=== PATIENT | female | born 1935 | race Caucasian/White ===

== ENCOUNTER 2022-05-14 09:51 | Inpatient (IN) | payer OTHER ==
[~2022-05-14] VITALS: Ht 154.9 cm; Wt 62.6 kg
[2022-05-14 10:10] VITALS: BP_SYST 132
[2022-05-14] MEDS ORDERED: ONDANSETRON 4 MG ODT TAB PO ONE (10:15)
--- NOTE | 2022-05-14 10:16 | NUR ---
ER Dr. Brenner at bedside examining patient.
--- NOTE | 2022-05-14 10:16 | NUR ---
Placed in room 4 . Placed on facilities supervisor, blood pressure machine and pulse oximeter. To gown for exam. Side rails up. Report given to
--- NOTE | 2022-05-14 10:16 | NUR ---
RECEIVED PT FROM [facility]. PT BIBA BLS FOR C/O N/V/D AND COFFEE GROUND EMESIS NOTED WITH VOMITING. PT IS AAOX4. ON R/A. NORMAL S1S2 NOTED. ABDOMEN SOFT, NONTENDER, NONDISTENDED. DISTAL PULSES NORMAL, SKIN WARM, CDI, NO EDEMA. DENIES PAIN. SIDERAILS UP X2.
--- NOTE | 2022-05-14 10:36 | NUR ---
# 20 gauge angiocath placed to LFA. Use of asceptic technique. Opsite placed over site. Blood return noted. Blood for lab drawn from site. Flushed with 10 cc of normal saline. No evidence of infiltration noted. Patient tolerated well.
[2022-05-14 10:43] LABS: BASOPHILS # (AUTO) 0.1 K/uL (0.0-0.2); BASOPHILS % (AUTO) 0.6 % (0.0-2.0); EOSINOPHILS % (AUTO) 0.1 % (0.0-4.0); HEMATOCRIT 34.3 % (36-48); HEMOGLOBIN 10.9 g/dL (12.0-16.0); LYMPHOCYTES # (AUTO) 1.1 K/uL (1.0-5.5); LYMPHOCYTES % (AUTO) 7.6 % (20.5-51.5); MEAN CORPUSCULAR HEMOGLOBIN 27 pg (27-31); MEAN CORPUSCULAR HGB CONC 32 % (32-36); MEAN CORPUSCULAR VOLUME 84 fL (79.0-98.0); MONOCYTES % (AUTO) 6.8 % (1.7-9.3); NEUTROPHILS # (AUTO) 12.1 K/uL (1.8-7.7); NEUTROPHILS % (AUTO) 84.9 % (40.0-70.0); PLATELET COUNT (AUTO) 485 K/uL (130-430); RED BLOOD CELL COUNT(AUTO) 4.09 MIL/uL (4.2-6.2); RED CELL DISTRIBUTION WIDTH 18.9 % (9.0-15.0); WHITE BLOOD COUNT (AUTO) 14.3 K/uL (4.8-10.8)
[2022-05-14 10:59] LABS: ANION GAP 9 (5-15); CHLORIDE 97 mmol/L (98-107); CREATININE 0.77 mg/dL (0.55-1.30); GLUCOSE 167 mg/dL (70-99); UREA NITROGEN, BLOOD 21 mg/dL (8-21)
[2022-05-14 11:00] LABS: PROTHROMBIN TIME 10.3 SECS (9.5-12.5)
[2022-05-14] MEDS ORDERED: ONDANSETRON HCL 4 MG/2 ML VIAL IVP ONE (11:00)
--- NOTE | 2022-05-14 11:02 | NUR ---
PT HAS C/O NAUSEA, ZOFRAN PO S/L GIVEN, ZOFRAN 4MG IVP GIVEN. PT POSITIONED TO SIDE WITH EMESIS BAG IN REACH.
[2022-05-14 11:03] LABS: ALANINE AMINOTRANSFERASE 18 U/L (12-78); ALBUMIN 3.2 g/dL (3.4-4.8); AMYLASE 44 U/L (0-100); ASPARTATE AMINOTRANSFERASE 17 U/L (10-37); LIPASE 49 U/L (73-393); TOTAL BILIRUBIN 0.4 mg/dL (0.0-1.0)
[2022-05-14] MEDS ORDERED: PANTOPRAZOLE SODIUM 40 MG/VIAL (PROTONIX) IVP ONE (12:00)
[2022-05-14] MEDS ORDERED: PROMETHAZINE INJ.Non-Formulary 25 MG/ML AMP IVP ONE (12:00)
[2022-05-14 12:12] LABS: BILIRUBIN,URINE NEGATIVE (NEGATIVE); CLARITY/URINE CLEAR (CLEAR); COLOR,URINE YELLOW (YELLOW); GLUCOSE,URINE TRACE (NEGATIVE); KETONES,URINE TRACE (NEGATIVE); LEUKOCYTE ESTERASE ,URINE 2+ (NEGATIVE); NITRITE, URINE POSITIVE (NEGATIVE); PROTEIN URINE 2+ (NEGATIVE)
[2022-05-14 12:14] LABS: BLOOD, URINE TRACE (NEGATIVE)
--- NOTE | 2022-05-14 12:15 | NUR ---
MED REC COMPLETED.
[2022-05-14] MEDS ORDERED: FLUT1BLS5 INH (12:21)
[2022-05-14] MEDS ORDERED: ALBU2.5V7 (12:21)
[2022-05-14] MEDS ORDERED: METOCLOPRAMIDE HCL 10 MG/2 ML VIAL IVP ONE (12:30)
[2022-05-14] MEDS ORDERED: PANT40GR PO (12:34)
[2022-05-14] MEDS ORDERED: NEU100 PO (12:34)
[2022-05-14] MEDS ORDERED: DOCU100T22 PO (12:34)
[2022-05-14] MEDS ORDERED: HEPA500015 SUBCUT (12:34)
[2022-05-14] MEDS ORDERED: ACET325T39 PO (12:34)
[2022-05-14 12:36] LABS: BACTERIA,URINE RARE /HPF (None Seen); WBC,URINE 20-50 /HPF (0-3)
--- NOTE | 2022-05-14 12:39 | NUR ---
Admit bed requested Patient will be admitted to care of . Admitted to TELEMETRY unit. Diagnosis GI BLEED Inpatient (Yes or No) YES Observation (Yes or No) N Orientation concerns or request close to nursing station (Yes or No) NO Covid Status NEGATIVE On vent or bipap NO Isolation requirements NONE Needs a sitter YES From Home (Yes or if No enter name of facility) [facility] Requires Dialysis (Yes or No) NO Med Rec Completed (Yes of No)YES
[2022-05-14] MEDS ORDERED: cefTRIAXone 1 GM VIAL ONE (12:43)
[2022-05-14] MEDS ORDERED: cefTRIAXone 1 GM in D5W 50 ML IV ONE (12:45)
--- NOTE | 2022-05-14 12:56 | NUR ---
COVID/MRSA OBTAINED.
[2022-05-14] MEDS ORDERED: ONDANSETRON HCL 4 MG/2 ML VIAL IVP PRN (13:00)
[2022-05-14] MEDS ORDERED: D5/0.45 NS 1,000 ML IV ONE (13:15)
[2022-05-14] MEDS ORDERED: METOPROLOL SUCCINATE 25 MG TAB.SR.24H (TOPROL XL) PO ONE (14:00)
--- NOTE | 2022-05-14 18:33 | NUR ---
Admit bed requested Patient will be admitted to care of . Admitted to TELEMETRY unit. Diagnosis GI BLEED Inpatient (Yes or No) YES Observation (Yes or No) NO Orientation concerns or request close to nursing station (Yes or No) NO Covid Status NEGATIVE On vent or bipap NO Isolation requirements NONE Needs a sitter NO From Home (Yes or if No enter name of facility) [facility] Requires Dialysis (Yes or No) NO Med Rec Completed (Yes of No) PENDING
--- NOTE | 2022-05-14 20:00 | NUR ---
pt resting in bed. pt c/o bilat lower extremity pain. notified md. pt has left shoulder fx AND left leg fx.
[2022-05-14] MEDS ORDERED: HYDROcodone/ACETAMIN 5-325 MG TAB (NORCO/ VICODIN) PO ONE (20:15)
--- NOTE | 2022-05-14 21:13 | NUR ---
Admission Note Received patient from ER with diagnosis of GASTROINTESTINALBLEED. Initial Plan of Care discussed-patient verbalized understanding. Family at bedside. Oriented to room, call light, pain management and safety.
[2022-05-14 22:07] VITALS: BP_SYST 109
[2022-05-15 05:54] VITALS: BP_SYST 101
--- NOTE | 2022-05-15 06:30 | NUR ---
Miss Rodríguez has been assessed as indicated. She has been noted to be very pleasant and cooperative. She states that she was in [facility] for rehab after sustaining a fall the resulted in a fx to her Right shoulder and RLE she has steri strips to her Right knee. she has drop foot to her RLE. She has been in rehab for about 1 month. She denies pain. She has had no emesis since her arrival to the floor. She has been NPO. IVF have been well tolerated. She is incontinent of bladder and has requested to wear a brief. She has not had a BM this shift. She is presently resting quietly with no s/s of distress or discomfort
--- NOTE | 2022-05-15 06:52 | NUR ---
CONSULTATION PAGED/CALLED Reason for Consultation: []infection Person Who was Notified: []NITHYA Consulting Physician: [] Dr. Carver Slitting Machine Feeder Specialty: []infectious disease Ordering Physician: []Dr. Perdomo
--- NOTE | 2022-05-15 06:56 | NUR ---
CONSULTATION PAGED/CALLED Reason for Consultation: []GI BLEED Person Who was Notified: []RUDY Consulting Physician: [] halie Degroot Skip Hoist Operator Specialty: [] GI Ordering Physician: []DR. turner
[2022-05-15 07:13] LABS: ANION GAP 9 (5-15); BASOPHILS # (AUTO) 0.1 K/uL (0.0-0.2); CALCIUM 9.6 mg/dL (8.4-11.0); CHLORIDE 100 mmol/L (98-107); CREATININE 0.82 mg/dL (0.55-1.30); EOSINOPHILS # (AUTO) 0.3 K/uL (0.0-0.4); EOSINOPHILS % (AUTO) 1.9 % (0.0-4.0); GLUCOSE 118 mg/dL (70-99); HEMATOCRIT 29.7 % (36-48); HEMOGLOBIN 9.4 g/dL (12.0-16.0); LYMPHOCYTES # (AUTO) 2.2 K/uL (1.0-5.5); LYMPHOCYTES % (AUTO) 16.5 % (20.5-51.5); MEAN CORPUSCULAR HEMOGLOBIN 27 pg (27-31); MEAN CORPUSCULAR HGB CONC 32 % (32-36); MEAN CORPUSCULAR VOLUME 84 fL (79.0-98.0); MONOCYTES # (AUTO) 1.3 K/uL (0.0-1.0); MONOCYTES % (AUTO) 9.8 % (1.7-9.3); NEUTROPHILS # (AUTO) 9.6 K/uL (1.8-7.7); NEUTROPHILS % (AUTO) 70.8 % (40.0-70.0); PLATELET COUNT (AUTO) 428 K/uL (130-430); RED BLOOD CELL COUNT(AUTO) 3.52 MIL/uL (4.2-6.2); RED CELL DISTRIBUTION WIDTH 18.7 % (9.0-15.0); UREA NITROGEN, BLOOD 19 mg/dL (8-21); WHITE BLOOD COUNT (AUTO) 13.5 K/uL (4.8-10.8)
[2022-05-15 07:14] LABS: ALANINE AMINOTRANSFERASE 16 U/L (12-78); ALBUMIN 2.8 g/dL (3.4-4.8); ASPARTATE AMINOTRANSFERASE 12 U/L (10-37); TOTAL BILIRUBIN 0.4 mg/dL (0.0-1.0)
--- NOTE | 2022-05-15 07:30 | NUR ---
Handoff has been given to john
--- NOTE | 2022-05-15 08:00 | NUR ---
AM NOTE: Received Patient sitting in bed. Awake, alert, oriented x 4. Patient denies nausea, no recent episodes of vomiting. C/O pain 5/10 to RLE. 20 gauge IV to LFA. Patient currently NPO status for EGD this AM. Bed in low, locked position. Call light and personal items within reach.
--- NOTE | 2022-05-15 08:15 | NUR ---
TO GI Pt left floor via bed to GI in no distress.
[2022-05-15 08:16] VITALS: BP_SYST 130
[2022-05-15] MEDS ORDERED: fentaNYL CITRATE/PF 100 MCG/2 ML AMP ONE (08:38)
[2022-05-15] MEDS ORDERED: MIDAZOLAM HCL 5 MG/5 ML VIAL ONE (08:38)
--- NOTE | 2022-05-15 09:50 | NUR ---
Patient returned from EGD procedure. Awake, alert, making needs known verbally. Report from GI nurse, Patient O2 sat decreased to 88% during procedure. Was placed on O2 @ 4 lpm. Vitals obtained upon return to unit: 96.8 F, 76, 123/54, 18, 100% on 4 lpm. IV removed from LFA d/t pain and slight redness. New IV placed 22 gauge to left hand. Patent & flushing well. AM meds given as ordered. Diet changed to full liquid.
[2022-05-15 10:10] VITALS: BP_SYST 123
[2022-05-15] MEDS: PANTOPRAZOLE SODIUM 40 MG/VIAL (PROTONIX) IVP SCH ×2 (10:10→21:01)
[2022-05-15] MEDS: METOPROLOL SUCCINATE 25 MG TAB.SR.24H (TOPROL XL) PO SCH (10:19)
--- NOTE | 2022-05-15 10:40 | NUR ---
Patient c/o pain to RLE 08/11. No PRN pain medications currently on file. Placed call to Dr. moulton to request PRN orders for pain management. Awaiting return call.
[2022-05-15 11:40] VITALS: BP_SYST 128
--- NOTE | 2022-05-15 12:00 | NUR ---
Patient resting in bed, right leg propped up on pillow. Right foot is being supported by a folded pillow to reduce discomfort from foot drop. Patient c/o slight SOB, requesting a breathing treatment. Will contact Doctor.
[2022-05-15] MEDS: HYDROcodone/ACETAMIN 5-325 MG TAB (NORCO/ VICODIN) PO PRN ×2 (12:53→19:00)
--- NOTE | 2022-05-15 13:00 | NUR ---
Patient c/o pain to right foot 08/11. Received order for PRN [place] 5-325 mg for pain management. Pain meds administered according to order. Patient son at bedside. Patient son brought some personal belongings, which were logged into inventory sheet.
--- NOTE | 2022-05-15 14:00 | NUR ---
Reassessed pain level post PRN medical office technology instructor. Patient states pain is relieved, 0/10. Patient son at bedside. Patient son brought a black, lace-up brace that she was previously provided for her right foot drop. Patient states the support the brace provides helps to ease her pain. Brace labeled with Patient name and added to inventory list.
[2022-05-15] MEDS: D5/0.45 NS 1,000 ML IV SCH (14:59)
[2022-05-15 15:10] VITALS: BP_SYST 108
[2022-05-15] MEDS ORDERED: ALBUTEROL SULFATE 0.083% 2.5 MG/3 ML VIAL.NEB INH ONE (15:27)
--- NOTE | 2022-05-15 19:05 | NUR ---
CLOSING NOTE: Patient resting in bed, right leg elevated on pillow with lace-up brace on right foot for foot drop. Patient c/o pain to right foot 4/10. PRN [place] 5-325 mg given. Patient education provided on pain management strategies, medicating before pain level is too high to allow ideal effectiveness, as well as common side effect of constipation. Patient verbalized understanding. No order on file for stool softeners, will endorse to NOC shift nurse. Patient expressed that all of her needs have been met. Bed in low, locked position, bed alarm activated. Call light and personal items within reach.
[2022-05-15] MEDS: ALBUTEROL SULFATE 0.083% 2.5 MG/3 ML VIAL.NEB INH SCH (20:22)
[2022-05-15] MEDS: metroNIDAZOLE 500 mg/NS 100 ML IV SCH (21:01)
[2022-05-16 00:03] VITALS: BP_SYST 113
[2022-05-16] MEDS: D5/0.45 NS 1,000 ML IV SCH ×2 (05:48→15:40)
--- NOTE | 2022-05-16 06:30 | NUR ---
Miss Rodríguez has been assessed as indicted. She states that he evening dose of pain medicine was effective. She has placed on a foot brace that her son brought her from home. this has given her right foot significant support. (she has right foot drop). She tolerated her dinner well. a purewick was put in place for her. This made her uncomfortable, despite this being effective, this was removed. She seemed to be very upset at bed time. (shortly after removing the purewick) She stated that she would like a sleep aide. An order was obtained. But when this lead technical writer returned to the room she was asleep. She is resting quietly at this time with no s/s of distress or discomfort.
[2022-05-16 07:05] LABS: BASOPHILS # (AUTO) 0.1 K/uL (0.0-0.2); BASOPHILS % (AUTO) 1.4 % (0.0-2.0); EOSINOPHILS # (AUTO) 0.3 K/uL (0.0-0.4); EOSINOPHILS % (AUTO) 3.7 % (0.0-4.0); HEMATOCRIT 28.4 % (36-48); HEMOGLOBIN 9.2 g/dL (12.0-16.0); LYMPHOCYTES # (AUTO) 1.7 K/uL (1.0-5.5); LYMPHOCYTES % (AUTO) 18.6 % (20.5-51.5); MEAN CORPUSCULAR HEMOGLOBIN 27 pg (27-31); MEAN CORPUSCULAR HGB CONC 32 % (32-36); MEAN CORPUSCULAR VOLUME 84 fL (79.0-98.0); MONOCYTES % (AUTO) 10.9 % (1.7-9.3); NEUTROPHILS % (AUTO) 65.4 % (40.0-70.0); PLATELET COUNT (AUTO) 410 K/uL (130-430); RED BLOOD CELL COUNT(AUTO) 3.37 MIL/uL (4.2-6.2); RED CELL DISTRIBUTION WIDTH 18.7 % (9.0-15.0); WHITE BLOOD COUNT (AUTO) 9.2 K/uL (4.8-10.8)
--- NOTE | 2022-05-16 07:29 | NUR ---
Handoff has been given to Leela
--- NOTE | 2022-05-16 07:30 | NUR ---
OPENING NOTE; PT RESTING IN BED, BREATHING NON-LABORED AND REGULAR ON 2L 02 VIA NC. PT IS WATCHING VIDEOS COMFORTABLY. PT HAS RIGHT FOOT BRACE. PT C/O RIGHT FOOT PAIN, WILL ADMINISTER PAIN MEDICATION PRESCRIBED. BED IS LOCKED AND AT LOW POSITION. CALL LIGHT WITHIN REACH. WILL CONT TO MONITOR
[2022-05-16 08:00] VITALS: BP_SYST 122
[2022-05-16 08:04] LABS: ANION GAP 9 (5-15); CALCIUM 9.7 mg/dL (8.4-11.0); CHLORIDE 101 mmol/L (98-107); CREATININE 0.74 mg/dL (0.55-1.30); GLUCOSE 125 mg/dL (70-99); UREA NITROGEN, BLOOD 14 mg/dL (8-21)
[2022-05-16] MEDS: ALBUTEROL SULFATE 0.083% 2.5 MG/3 ML VIAL.NEB INH SCH ×2 (08:34→12:01)
[2022-05-16] MEDS: METOPROLOL SUCCINATE 25 MG TAB.SR.24H (TOPROL XL) PO SCH (08:51)
[2022-05-16] MEDS: PANTOPRAZOLE SODIUM 40 MG/VIAL (PROTONIX) IVP SCH (08:51)
[2022-05-16] MEDS: metroNIDAZOLE 500 mg/NS 100 ML IV SCH (08:55)
--- NOTE | 2022-05-16 09:00 | NUR ---
MD ROUNDS; AT BEDSIDE, ASSESSING PT
[2022-05-16] MEDS: HYDROcodone/ACETAMIN 5-325 MG TAB (NORCO/ VICODIN) PO PRN ×2 (09:01→15:30)
[2022-05-16 12:50] VITALS: BP_SYST 121
[2022-05-16] MEDS ORDERED: LEVO-62 PO (13:28)
[2022-05-16] MEDS ORDERED: DIF100 PO (13:28)
[2022-05-16] MEDS ORDERED: PANT40GR PO (13:28)
[2022-05-16] MEDS ORDERED: METO-540 PO (13:30)
[2022-05-16 13:35] VITALS: BP_SYST 116; BP_SYST 121
--- NOTE | 2022-05-16 14:00 | NUR ---
CALLED [facility] ( [facility]). AWAITING TRANSPORTATION AND BED AVAILABILITY STATUS.
--- NOTE | 2022-05-16 16:28 | NUR ---
CALLED [facility]([phone]) AGAIN FOR UPDATES. HE SAID HE IS WORKING ON IT NOW. HE WILL CALL BACK SOON
[2022-05-16 16:44] VITALS: BP_SYST 113
--- NOTE | 2022-05-16 17:30 | NUR ---
PT IS GOING BACK TO [facility] @20:00 BY [facility]([phone]).
[2022-05-16 19:45] VITALS: BP_SYST 115
--- NOTE | 2022-05-16 19:55 | NUR ---
NOTES; nurse called me that the ambulance belt picker will be late @ 2100. pt. informed and son but very concerned since [facility] has a cut off time.
--- NOTE | 2022-05-16 20:15 | NUR ---
NOTES: called [facility] that pt. will be late for [employer] spot picker, talked to Jessica and said she will informed them, also called [facility] to follow up on the molded goods spot picker time and spoke to Kasia. charge nurse Vivienne still getting report at this time, will inform her. pt. son is aware what is the situation.
--- NOTE | 2022-05-16 20:30 | NUR ---
NOTES: pt. son called [facility] and spoke to hiren cabin equipment supervisor Caridad that they will be here @ 2100.
[2022-05-16] MEDS ORDERED: TEMAZEPAM 7.5 MG CAPSULE PO SCH (21:00)
--- NOTE | 2022-05-16 21:15 | NUR ---
NOTES: [facility] came @ 2114. report given to them . pt. in stable condition.
--- NOTE | 2022-05-16 21:25 | NUR ---
NOTES: pt. paper works was already given on day shift as well as the report to the facility. pt. discharge via [facility] accompanied by her son in stable condition. no bleeding.
[2022-05-17] MEDS ORDERED: FLUCONAZOLE 100 MG TABLET (DIFLUCAN) PO SCH (09:00)
== END 2022-05-16 22:13 | DRG 871 ==
LOC: SED 09:51 → STU 12:35
PROVIDERS: ADMIT Internal Medicine; ATTEND Internal Medicine
PROC: 0DB78ZX Excision of Stomach, Pylorus, Via Natural or Artificial Opening Endoscopic, Diagnostic (ICD-10-PCS; 2022-05-15)
PROC: 0DB58ZX Excision of Esophagus, Via Natural or Artificial Opening Endoscopic, Diagnostic (ICD-10-PCS; principal; 2022-05-15 09:00)
DX: A41.9 Sepsis, unspecified organism (principal); K21.01 Gastro-esophageal reflux disease with esophagitis, with bleeding; K29.71 Gastritis, unspecified, with bleeding; N39.0 Urinary tract infection, site not specified; K44.9 Diaphragmatic hernia without obstruction or gangrene; J44.9 Chronic obstructive pulmonary disease, unspecified; I45.10 Unspecified right bundle-branch block; Z20.822 Contact with and (suspected) exposure to COVID-19; I10 Essential (primary) hypertension; E11.9 Type 2 diabetes mellitus without complications; E78.5 Hyperlipidemia, unspecified; D50.0 Iron deficiency anemia secondary to blood loss (chronic); Z88.6 Allergy status to analgesic agent; Z79.899 Other long term (current) drug therapy; Z87.891 Personal history of nicotine dependence; Z79.2 Long term (current) use of antibiotics
CPT/HCPCS: 36415; 43239; 71045; 76376; 80048; 80053; 81000; 82150; 83605; 83690; 83735; 83880; 84484; 85025; 85610-TC; 85730-TC; 86870; 86886; 86900; 86901; 87040; 87081; 87086; 88305; 88312; 88313; 93005; 93306; 94640; 94760; 96365; 96375; 97163-GP; 97530-GP; 99285; C9113; G0378; J0696; J2250; J2405; J2550; J2765; J3010; J3490; J7060; J7613; Q0162